=== PATIENT | male | born 1980 | race American Indian/Alaskan Native ===

== ENCOUNTER 2018-01-21 06:41 | Emergency (ER) | payer MEDICAID ==
[2018-01-21 06:52] VITALS: BP 128/69
[2018-01-21 07:23] LABS: Hematocrit 21.9 % (35.5-45.6); Hemoglobin 7.8 gm/dl (11.8-15.2); Mean Corpuscular HGB Conc 36 % (32-34); Mean Corpuscular Hemoglobin 29 pg (28-32); Mean Corpuscular Volume 80 fl (84-94); Platelet Count 438 K/mm3 (140-440); Red Blood Count 2.74 M/mm3 (3.65-5.03); Red Cell Distribution Width 24.4 % (13.2-15.2)
[2018-01-21 08:31] LABS: Basophils % (Manual) 0 % (0.0-1.8); Eosinophils % (Manual) 0 % (0.0-4.3); Total Cells Counted 100
[2018-01-21 08:33] LABS: Anisocytosis 2+; Platelet Estimate Consistent w Auto; Sickle Cells 2+; Spherocytes Few; Target Cells 1+
== END 2018-01-21 09:06 | disposition left against medical advice (07) ==
LOC: ED 06:41
DX: R07.89 Other chest pain (principal); Z53.21 Procedure and treatment not carried out due to patient leaving prior to being seen by health care provider
CPT/HCPCS: 36415; 85007; 85025; 85045; 93005; 93010